=== PATIENT | female | born 1955 | race Hispanic/Latino ===

== ENCOUNTER 2018-01-15 12:58 | Emergency (ER) | payer MEDICARE ==
[2018-01-15 13:07] VITALS: RESP 18; BMI 19.8
[2018-01-15 14:19] LABS: BASO % 0.5 % (0.0-2.0); EOS # 0.1 K/uL (0.0-0.7); EOS % 1.2 % (0.0-4.0); HEMOGLOBIN 13.7 g/dL (11.0-16.0); LYMPH # 1.8 K/uL (1.0-4.3); LYMPH % 36.7 % (20.0-40.0); MEAN CORPUSCULAR HEMOGLOBIN 29.9 pg (27.0-31.0); MEAN CORPUSCULAR HGB CONC 33.2 g/dL (33.0-37.0); MEAN PLATELET VOLUME 9.9 fL (7.2-11.7); MONO # 0.4 K/uL (0.0-0.8); MONO % 7.6 % (0.0-10.0); NEUT # 2.7 K/uL (1.8-7.0); NRBC % 0.1 % (0.0-2.0); RBC 4.56 Mil/uL (3.80-5.20)
[2018-01-15 14:20] LABS: MEAN CELL VOLUME 90.3 fL (81.0-99.0)
[2018-01-15 14:24] LABS: ALB/GLOB RATIO 1.3 (1.0-2.1); ALBUMIN 4.3 g/dL (3.5-5.0); ALT/SGPT 47 U/L (9-52); AST/SGOT 42 U/L (14-36); BLOOD UREA NITROGEN 16 mg/dL (7-17); CALCIUM 9.2 mg/dl (8.6-10.4); GFR AFRICAN-AMERICAN > 60; GFR NON-AFRICAN AMERICAN > 60
[2018-01-15 14:27] LABS: PROTHROMBIN TIME 11.4 SECONDS (9.7-12.2)
[2018-01-15 14:34] LABS: B-TYPE NATRIURETIC PEPTIDE 384 pg/mL (0-900)
[2018-01-15] MEDS ORDERED: Iodixanol 320 MG/ML 100 ML BOTTLE IV ONE (15:47)
--- NOTE | 2018-01-15 15:53 | RAD ---
HISTORY: SOB COMPARISON: 12/28/2013 chest x-ray TECHNIQUE: Chest PA and lateral FINDINGS: LUNGS: No consolidation. Bilateral hyperaeration -similar-appearing. Interstitial markings appear borderline prominent as before. PLEURA: No significant pleural effusion identified. No pneumothorax apparent. CARDIOVASCULAR: Normal. OSSEOUS STRUCTURES: No significant abnormalities. VISUALIZED UPPER ABDOMEN: Normal. OTHER FINDINGS: None. IMPRESSION: Bilateral hyperaeration compatible with background COPD. No interval pathology appreciated
[2018-01-15 16:27] VITALS: BP 133/66; PULSE 47; TEMP 98.1; O2SAT 100
--- NOTE | 2018-01-15 16:38 | CT ---
PROCEDURE: CTA chest dated HISTORY: SOB, rule out PE COMPARISON: None available. TECHNIQUE: Contiguous helical/transaxial computed tomography images were obtained of the chest in the pulmonary arterial phase of enhancement. Coronal and sagittal reformatted images were created and reviewed. Intravenous contrast dose: 100 cc Visipaque 320 Radiation dose: Total exam DLP = 214.25 mGy-cm. This CT exam was performed using one or more of the following dose reduction techniques: Automated exposure control, adjustment of the mA and/or kV according to patient size, and/or use of iterative reconstruction technique FINDINGS: PULMONARY ARTERIES: The visualized pulmonary trunk, right and left main, lobar, segmental and subsegmental branches of the pulmonary arteries are well below opacified with no definitive filling defects seen to suggest acute central pulmonary embolus. AORTA: No acute findings. No thoracic aortic aneurysm. Ascending thoracic aorta measures approximately 3.26 cm and descending thoracic aorta measures approximately 2.65 cm LUNGS: Minor passive/dependent type atelectasis both posterior lower lung zones. Minor linear atelectasis/ scarring changes seen in the left lingular region. Minor biapical pleural thickening and parenchymal scarring. Lung escamilla are otherwise clear without focal consolidation or effusion. PLEURAL SPACES: Unremarkable. No effusion or pneumothorax HEART: Heart is enlarged. No significant pericardial effusion. LYMPH NODES: Small approximately 12 mm AP window lymph node present -nonspecific. Small non specific hilar lymph nodes are present ; on the right side measuring approximately 11.8 mm and on the left side measuring approximately 8.6 mm. BONES, CHEST WALL: Mild multilevel degenerative spondylosis of the thoracic spine. No acute compression fractures no retropulsed fragments. OTHER FINDINGS: There is a tiny hiatal hernia. IMPRESSION: No evidence of acute central pulmonary embolus. Few small nonspecific mediastinal and hilar lymph nodes. Cardiomegaly. Minimal chronic atelectasis and or scarring changes left lingular region. Mild biapical pleural thickening and parenchymal scarring
--- NOTE | 2018-01-15 17:08 | C.PDOC ---
Time Seen by Provider: 01/15/18 13:29 Chief Complaint (Nursing): Shortness Of Breath History Per: Patient, Family Onset/Duration Of Symptoms: Days (few) Current Symptoms Are (Timing): Still Present Severity: Moderate Additional History Per: Prior Records Past Medical History Reviewed: Historical Data, Nursing Documentation, Vital Signs Vital Signs: Last Vital Signs Temp 98.1 F 01/15/18 16:27 Pulse 47 L 01/15/18 16:27 Resp 18 01/15/18 16:27 BP 133/66 01/15/18 16:27 Pulse Ox 100 01/15/18 16:27 - Medical History PMH: COPD, Depression, Emphysema Family History: States: Unknown Family Hx - Social History Hx Tobacco Use: No (Quit a few weeks ago) Hx Alcohol Use: No Hx Substance Use: No - Immunization History Hx Tetanus Toxoid Vaccination: Yes Hx Influenza Vaccination: Yes Hx Pneumococcal Vaccination: Yes Review Of Systems Except As Marked, All Systems Reviewed And Found Negative. Constitutional: Negative for: Fever, Weakness ENT: Negative for: Throat Pain Cardiovascular: Negative for: Chest Pain Respiratory: Positive for: SOB with Excertion. Negative for: Cough, Hemoptysis Gastrointestinal: Negative for: Vomiting, Abdominal Pain Musculoskeletal: Negative for: Neck Pain, Back Pain, Leg Pain Skin: Negative for: Rash Neurological: Negative for: Weakness, Numbness Physical Exam - Physical Exam Appears: Non-toxic, No Acute Distress Skin: Normal Color, Warm, Dry, No Rash Head: Atraumatic, Normacephalic Eye(s): bilateral: Normal Inspection, PERRL, EOMI Neck: Normal ROM, Supple Cardiovascular: Rhythm Regular Respiratory: Normal Breath Sounds, No Accessory Muscle Use Gastrointestinal/Abdominal: Soft, No Tenderness Extremity: Normal ROM, No Calf Tenderness Neurological/Psych: Oriented x3, Normal Motor, Normal Sensation ED Course And Treatment - Laboratory Results Result Diagrams: 01/15/18 14:08 01/15/18 14:08 ECG: Interpreted By Me, Viewed By Me ECG Rhythm: Sinus Rhythm ECG Interpretation: No Acute Changes Rate From EC O2 Sat by Pulse Oximetry: 100 Pulse Ox Interpretation: Normal - Radiology CXR: Viewed By Me, Read By Radiologist CXR Interpretation: Yes: COPD - CT Scan/US CTA of chest Other Rad Studies (CT/US): Read By Radiologist, Radiology Report Reviewed CT/US Interpretation: IMPRESSION: No evidence of acute central pulmonary embolus. Few small nonspecific mediastinal and hilar lymph nodes. Cardiomegaly. Minimal chronic atelectasis and or scarring changes left lingular region. Mild biapical pleural thickening and parenchymal scarring Disposition Counseled Patient/Family Regarding: Studies Performed, Diagnosis, Need For Followup, Rx Given - Disposition Referrals: Kayy Mcconnell DO [[facility]] - Disposition: HOME/ ROUTINE Disposition Time: 17:09 Condition: FAIR Additional Instructions: Follow up with your doctor for further evaluation and treatment. Return to the ER if you develop chest pain, fever, coughing, worsening of symptoms or if you have any other concerns. Prescriptions: predniSONE [predniSONE Tab] 2 tab PO DAILY #10 tab Instructions: COPD Including Emphysema (DC) Forms: View the Space (Greenlandic) - Clinical Impression Clinical Impression: COPD (chronic obstructive pulmonary disease)
--- NOTE | 2018-01-16 13:33 | CARD ---
APPROVED REPORT EKG Measurement Heart [id number] <Conclusion> Normal sinus rhythm Normal ECG
== END 2018-01-15 17:27 | disposition home or self-care (01) ==
LOC: C.ER 12:58
DX: J44.9 Chronic obstructive pulmonary disease, unspecified (principal)
CPT/HCPCS: 71046; 71275; 80053; 83735; 83880; 84484; 85025; 85378; 85610; 85730; 93005; 99285; Q9967

== ENCOUNTER 2018-06-10 06:28 | Day surgery (SDC) | payer MEDICARE ==
[2018-06-10 06:58] VITALS: BMI 21.8
[2018-06-10] MEDS ORDERED: Propofol 10 mg/ml Inj (20 ML) ONE (08:05)
[2018-06-10] MEDS ORDERED: Lactated Ringer's 500 ML IV ONE (08:09)
[2018-06-10] MEDS ORDERED: Albuterol HFA 90 mcg/actuation (8 g) ONE (08:10)
--- NOTE | 2018-06-10 08:12 | CP.SDSHP ---
Same Day Surgery H & P - History Proposed Procedure: egd Pre-Op Diagnosis: epigastric pain. heartburn. h/o pud - Previous Medical/Surgical History Pulmonary: Emphysema/COPD Endocrine/Metabolic: Other (Periph Neuropathy, Foot drop) Misc: Other (Narcotic dependency) Pain: 4.Moderate Pain - Allergies Allergies: Allergies No Known Allergies Allergy (Verified 06/10/18 06:57) - Physical Exam Vital Signs: Vital Signs 06/10/18 06/10/18 07:05 07:46 Temperature 98.4 F Pulse Rate 55 L 55 L Respiratory 19 Rate Blood Pressure 133/70 O2 Sat by Pulse 97 Oximetry Mental Status: Alert & Oriented x3 Neuro: WNL Heart: WNL Lungs: WNL GI: WNL - Impression Impression: epigastric pain. heartburn. h/o PUD Pt. Evaluated Today:Candidate for Anesthesia & Procedure: Yes - Date & Time Date: 06/10/18 Time: 08:12 Short Stay Discharge - Short Stay Discharge Admitting Diagnosis/Reason for Visit: EPIGASTRIC PAIN, HEARTBURN, PERSONAL HISTORY OF Disposition: HOME/ ROUTINE
[2018-06-10] MEDS ORDERED: Pantoprazole 40 mg EC Tab PO STA ×2 (08:13→09:21)
[2018-06-10 09:30] VITALS: TEMP 97
[2018-06-10 09:31] VITALS: O2SAT 96
[2018-06-10 09:58] VITALS: BP 115/65; PULSE 75; RESP 14
== END 2018-06-10 09:50 | disposition home or self-care (01) ==
LOC: C.ENDO 06:28
PROVIDERS: ATTEND Internal Medicine Gastroenterology
DX: K21.0 Gastro-esophageal reflux disease with esophagitis (principal); Z87.11 Personal history of peptic ulcer disease; K31.84 Gastroparesis; J43.9 Emphysema, unspecified
CPT/HCPCS: 43239; 88305; J2704; J7120

== ENCOUNTER 2019-01-21 10:10 | Outpatient (CLI) | payer MEDICARE | END 2019-01-21 10:11 | disposition home or self-care (01) | LOC: C.CTH 10:11 | DX: R91.8 Other nonspecific abnormal finding of lung field (principal) ==